=== PATIENT | female | born 1955 | race Caucasian/White ===

== ENCOUNTER 2018-10-23 21:39 | Inpatient (IN) | payer OTHER ==
[~2018-10-23] VITALS: Ht 162.6 cm; Wt 89.0 kg
[2018-10-23 21:49] VITALS: Ht 162.6 cm; Wt 89.0 kg
--- NOTE | 2018-10-23 23:00 | NUR ---
PT. IN ED WITH C/O ABD CRAMPING AND N/V SINCE MONDAY. REPORTS SHE WENT TO URGENT CARE EARLIER TODAY AND WAS TOLD TO COME TO ED. DENIES DYSURA, OR FREQUENCY. ALSO DENIES ANY RECENT TRAVEL. PT. AAOX4, TALKING AND RESPONDING APPROPRIATELY, BREATHING E/U. NAD. AMBULATED TO RESTROOM TO OBTAIN URINE SAMPLE
--- NOTE | 2018-10-23 23:14 | NUR ---
PT. TAKEN TO CT VIA WHEELCHAIR
[2018-10-23 23:25] LABS: BASOPHIL % 0.2 % (0-2); PLATELET COUNT 255 x10^3mcL (130-400)
[2018-10-23 23:28] LABS: RED CELL DISTRIBUTION WIDTH 15.1 % (11.5-14.5)
[2018-10-23 23:34] LABS: CALCIUM 10.8 mg/dL (8.5-10.1); CARBON DIOXIDE 17.2 mmol/L (21-32); CHLORIDE SERUM 95 mmol/L (98-107); CREATININE SERUM 0.8 mg/dL (0.6-1.0); GFR1 > 60 mL/min; GLUCOSE SERUM 324 mg/dL (74-106); POTASSIUM SERUM 3.5 mmol/L (3.5-5.1); SODIUM SERUM 133 mmol/L (136-145)
[2018-10-23 23:38] LABS: UA SPECIFIC GRAVITY >=1.030 (1.005-1.035); microscopic required? YES; urine erythrocyte TRACE (NEGATIVE)
[2018-10-23 23:39] LABS: ALKALINE PHOSPHATASE 185 U/L (46-116); ALT/SGPT 156 U/L (14-59); AST/SGOT 18 U/L (15-37); BILIRUBIN TOTAL 0.8 mg/dL (0.20-1.00); LIPASE 316 IU/L (73-393)
[2018-10-23 23:41] LABS: ALBUMIN 2.8 g/dL (3.4-5.0)
--- NOTE | 2018-10-23 23:46 | NUR ---
PT. MEDICATED PER E-MAR. OXYGEN SAT DECREASED AFTER MORPHINE GIVEN. PLACED ON 2L OXYGEN VIA NC.
--- NOTE | 2018-10-24 00:06 | NUR ---
LAB AT BEDSIDE TO DRAW BLOOD CULTURES
--- NOTE | 2018-10-24 00:51 | NUR ---
US AT BEDSIDE.
--- NOTE | 2018-10-24 02:15 | NUR ---
PER DR. WILLIAMSON, START D5 1/2 NS AT 15ML/HR FOR 30MIN THEN START INSULIN DRIP AT 8UNITS/HR.
[2018-10-24 02:34] LABS: MAGNESIUM 1.9 mg/dL (1.8-2.4); PHOSPHOROUS 3.1 mg/dL (2.5-4.9)
[2018-10-24 02:35] LABS: CHOLESTEROL/HDL RATIO 8.6; T3 TOTAL 0.75 ng/mL
[2018-10-24 02:44] LABS: FREE T4 1.19 ng/dL (0.76-1.46); FREE THYROXINE INDEX 2.9 ug/dL (1.4-4.5); T4(THYROXINE) 9.1 ug/dL (4.7-13.3)
--- NOTE | 2018-10-24 03:21 | NUR ---
PT. LAYING ON GURNEY IN POSITION OF COMFORT. BREATHING E/U. REPORTS LOWER BACK PAIN 06/13 AND REQUEST PAIN MEDICATION. CALL LIGHT IN REACH. WILL CONTINUE TO MONITOR.
--- NOTE | 2018-10-24 04:09 | NUR ---
BLOOD SUGAR AT 326 AT THIS TIME. PER SLIDING SCALE INSULIN DRIP TITRATED TO 4UNITS/HR
--- NOTE | 2018-10-24 05:21 | NUR ---
BLOOD SUGAR 253. PER INSULIN DRIP SLIDING SCALE INFUSION CHANGED TO 3UNITS/HR
[2018-10-24 05:25] LABS: UA SPECIFIC GRAVITY >=1.030 (1.005-1.035); microscopic required? YES; urine erythrocyte NEGATIVE (NEGATIVE)
[2018-10-24 05:34] LABS: AMPHETAMINE QUAL UR NONE DETECTED (See below)
--- NOTE | 2018-10-24 06:00 | NUR ---
PT. REPORTS SHE DOES NOT TAKE ANY MEDICATIONS AT HOME
--- NOTE | 2018-10-24 06:10 | NUR ---
BLOOD SUGAR 256, INSULIN DRIP KEPT AT 3UNITS PER E-MAR SLIDING SCALE. PT. LAYING ON GURNEY IN POSITON OF COMFORT. BREATHING E/U. NAD. CALL LIGHT IN REACH. WILL CONTINUE TO MONITOR
--- NOTE | 2018-10-24 06:27 | NUR ---
DR. SLADEED AT BEDSIDE TO DISCUSS PLAN OF CARE WITH PATIENT.
--- NOTE | 2018-10-24 07:00 | NUR ---
BLOOD SUGAR 229. PER SLIDING SCALE INSLIN DRIP CHANGED TO 2U/HR.
--- NOTE | 2018-10-24 07:19 | NUR ---
ATTEMPTED TO GIVE REPORT, NURSE STATES SHE JUST GOT A NEW ADMISSION. AND REQUEST TO CALL BACK IN A FEW MINUTES
--- NOTE | 2018-10-24 07:24 | NUR ---
REPORT GIVEN TO EDER ARGUETA FOR FURTHER CARE OF PATIENT. ALL QUESTIONS AND CONCERS ADDRESSED.
--- NOTE | 2018-10-24 07:29 | NUR ---
REPORT RECEIVED FROM BILLY ARGUETA. PT LYING IN BED NO DISTRESS ON CM VSS IVF INFUSING WITH NO PROBLEM. WILL MONITOR
--- NOTE | 2018-10-24 08:00 | NUR ---
ATTEMPTED TO GIVE REPORT TO HELP DESK TECHNICIAN SHE IS NOT AVAILABLE TO TAKE REPORT AT THIS TIME
--- NOTE | 2018-10-24 08:02 | NUR ---
PATIENT'S BP 75/20, MAP 38. WISAM INITIATED AT 10 MCG.
--- NOTE | 2018-10-24 08:09 | NUR ---
LAB AT BEDSIDE FOR BLOOD DRAW. BLOOD GLUCOSE RECHECK 242 AT THIS TIME. INSULIN DRIP RATE AT 2 UNITS/HR INFUSING WITH NO PROBLEM. VSS AT THIS TIME. PT IN NO DISTRESS. CALL LIGHT IN REACH. WILL MONITOR
--- NOTE | 2018-10-24 08:23 | NUR ---
I ASSISTED PT TO BATHROOM AMBULATORY WITH NO PROBLEM. PT VOIDED WITH NO INCIDENT. PT BACK TO BED WITH NO INCIDENT. IVF INFUSIONS RESUMED IV SITE PATENT. PT IN POSITION OF COMFORT SIDE RAILS UP X 2 FOR SAFETY CALL LIGHT IN REACH WILL CONTINUE TO MONITOR
[2018-10-24 08:38] LABS: CALCIUM 8.2 mg/dL (8.5-10.1); CARBON DIOXIDE 20.6 mmol/L (21-32); CREATININE SERUM 0.7 mg/dL (0.6-1.0); GFR1 > 60 mL/min; GLUCOSE SERUM 260 mg/dL (74-106); MAGNESIUM 1.5 mg/dL (1.8-2.4); PHOSPHOROUS 1.9 mg/dL (2.5-4.9)
[2018-10-24 08:44] LABS: CHLORIDE SERUM 104 mmol/L (98-107); POTASSIUM SERUM 3.2 mmol/L (3.5-5.1); SODIUM SERUM 136 mmol/L (136-145)
--- NOTE | 2018-10-24 08:45 | NUR ---
CHIEF SCIENCE OFFICER UNAVAILABLE AT THIS TIME FOR REPORT. PT IN NO DISTRESS ON FULL CM VSS WILL CONTINUE TO MONITOR
--- NOTE | 2018-10-24 09:27 | NUR ---
PT VSS AT [facility]. NO DISTRESS IVF INFUSIONS IN PROGRESS ORDERED BY IV SITE PATENT. PT REPOSITIONED EXTRA PILLOW PROVIDED WELL WARM BLANKETS PER PTS REQUEST LIGHTS OFF FOR COMFORT. PHARMACY CALLED FOR AM MEDS PENDING, AWAITING DELIVERY. WILL CONTINUE TO MONITOR
--- NOTE | 2018-10-24 09:30 | NUR ---
ATTEMPTED TO GIVE REPORT TO [facility] SHE IS UNAVAILABLE AT THIS TIME. APPLICATION PROJECT LEADER KIERAN MADE AWARE.
--- NOTE | 2018-10-24 10:30 | NUR ---
PT C/O 12/13 ABD PAIN RESIDENT PAGED AWAITING ORDERS. WILL CONTINUE TO MONITOR
--- NOTE | 2018-10-24 10:45 | NUR ---
PT MEDICATED FOR PAIN ORDERED BY RESIDENT SEE EMAR. PT IN POSITION OF COMFORT PTS AT BEDSIDE WILL MONITOR
--- NOTE | 2018-10-24 11:22 | NUR ---
REPORT GIVEN TO DAYANA ARGUETA IN ICU
--- NOTE | 2018-10-24 11:50 | NUR ---
PT TRANSPORTED TO ICU FLOOR ON PORTABLE CM IVF INFUSIONS RESUMED BY LABORATORY EQUIPMENT INSTALLER. JOHNSON RN AND NATE EMT ACCOMPANIED PT VSS IV SITES PATENT. ALSO ACCOMPANYING PT TO ICU DEPT. CARE OF PT RESUMED BY LABORATORY EQUIPMENT INSTALLER.
--- NOTE | 2018-10-24 12:00 | NUR ---
RC'D PT FROM ED VIA [facility] WITH NURSE PRESENT AT BEDSIDE. PT A/A/O/X4, SPEECH CLEAR AND APPROPRIATE. PT DENIES ESPARZA/DIZZINESS. PT RESPONDS TO VERBAL COMMANDS AND ABLE TO MAKE NEEDS KNOWN. PUPILS 3MM AND BRISK BILAT. EENT FREE OF DRAINAGE. RESPIRATIONS EQUAL AND UNLABROED. LUNGS CTA. ON 2L O2 VIA NC, PT DENIES SOB. SPO2 97%, NO RESP DISTRESS. NOTED. NSR ON GATE OPERATOR, HR=94. PT DENIES CP./ PALP PULSES, NO EDEMA NOTED. CAP REFILL <3. SKIN WARM TO TOUCH. PT ABLE TO REPOSITION SELF IN BED. PT USES BSC. PT CURRENTLY NPO AT THIS TIME. ABDOMEN ROUND AND TENDER INTERMITTENTLY. ACTIVE BS. PT DENIES N/V AT THIS TIME. NO BM NOTED. PT VOIDS FREELY, DENIES BURNING. SKIN W/D/I. PT CALM AND COOPERATIVE AT THIS TIME. BED IN LOWEST POSITION. [facility]
--- NOTE | 2018-10-24 12:39 | NUR ---
MEDICAL CASE MANAGER PRESENT AT BEDSIDE.
--- NOTE | 2018-10-24 12:54 | NUR ---
PATIENT C/O PAIN IN BACK 7/10 ACHING. ADMINISTER MORPHINE 2 MG IVP FOR PAIN.
[2018-10-24 13:31] LABS: CALCIUM 8.3 mg/dL (8.5-10.1); CARBON DIOXIDE 19.7 mmol/L (21-32); CHLORIDE SERUM 104 mmol/L (98-107); CREATININE SERUM 0.7 mg/dL (0.6-1.0); GFR1 > 60 mL/min; GLUCOSE SERUM 264 mg/dL (74-106); MAGNESIUM 1.5 mg/dL (1.8-2.4); POTASSIUM SERUM 3.4 mmol/L (3.5-5.1); SODIUM SERUM 137 mmol/L (136-145)
[2018-10-24 14:08] VITALS: BP 157/75
[2018-10-24 15:36] VITALS: BP 130/61
--- NOTE | 2018-10-24 15:46 | NUR ---
PT RESTING IN BED WITH PRESENT AT BEDSIDE. RESPIRATIONS EQUAL AND UNLABORED. ON 2L O2 VIA NC, DENIES SOB. NSR ON HYDRAULIC STRAINER OPERATOR. PT DENIES CP. GENERALIZED WEAKNESS, PT ABLE TO REPOSITION SELF. NS INFUSING AT 250 PER EMAR. INSULIN DRIP INFUSING @9UN/KG/HR PER MD ORDER. PT NPO AT THIS TIME. BED IN LOWEST POSITION WILL CONT TO MONITOR
--- NOTE | 2018-10-24 16:34 | NUR ---
BS 182 INSULIN ADJUSTED TO 4.5UN/HR PER PROTOCOL AND D51/2 INITIATED AT THIS TIME.
[2018-10-24 16:49] LABS: CARBON DIOXIDE 16.8 mmol/L (21-32); CHLORIDE SERUM 105 mmol/L (98-107); CREATININE SERUM 0.6 mg/dL (0.6-1.0); GFR1 > 60 mL/min; GLUCOSE SERUM 170 mg/dL (74-106); MAGNESIUM 2.3 mg/dL (1.8-2.4); PHOSPHOROUS 1.7 mg/dL (2.5-4.9); POTASSIUM SERUM 3.1 mmol/L (3.5-5.1); SODIUM SERUM 135 mmol/L (136-145)
--- NOTE | 2018-10-24 16:57 | NUR ---
RECRUITMENT AND OUTREACH ASSISTANT UNABLE TO GET ADEQUATE AMOUNT OF BLOOD FOR VBG. PATIENT REFUSING TO ALLOW DRAW ON HAND.
--- NOTE | 2018-10-24 17:21 | NUR ---
PT C/O OF ABD PAIN 08/13, REQUESTING MORPHINE IVP. MEDICATED PER EMAR. VITALS STABLE. WILL CONT TO MONITOR
--- NOTE | 2018-10-24 19:15 | NUR ---
RECIEVED REPORT FROM ELLIE CERON. POC DISCUSSED. NURSING UPDATES. SEE SHIFT ASSESSMENT FOR ASSESSMENT.
--- NOTE | 2018-10-24 19:40 | NUR ---
REPORT GIVEN TO BETTY ARGUETA. ALL QUESITON AND CONCERNS ADDRESSED
--- NOTE | 2018-10-24 20:44 | NUR ---
PT C/O PAIN 09/12. ADM PRN (*SEE MAR*) MORPHINE. PT STATED RELIEF. WILL REASSESS.
--- NOTE | 2018-10-24 20:47 | NUR ---
TITRATED NS FROM 2L TO OFF. PT TOLERATED WELL. NO S/S OF RESP DISTRESS. PT DENIES RESP DISTRESS. 02 SAT 94%. WILL CONT TO MONITOR.
--- NOTE | 2018-10-24 21:06 | NUR ---
FAST FOOD FRY COOK @ BEDSIDE.
[2018-10-24 21:38] LABS: MAGNESIUM 2.1 mg/dL (1.8-2.4)
[2018-10-24 23:23] VITALS: BP 162/76
[2018-10-24 23:28] LABS: CALCIUM 8.1 mg/dL (8.5-10.1); CARBON DIOXIDE 13.5 mmol/L (21-32); CHLORIDE SERUM 103 mmol/L (98-107); CREATININE SERUM 0.6 mg/dL (0.6-1.0); GFR1 > 60 mL/min; GLUCOSE SERUM 251 mg/dL (74-106); POTASSIUM SERUM 3.8 mmol/L (3.5-5.1); SODIUM SERUM 134 mmol/L (136-145)
--- NOTE | 2018-10-25 | NUR ---
PT PLACED ON NPO FOR SCHEDULED SURGERY. PT TOLERATED WELL AND ACKNOWLEDGES NPO STATUS.
--- NOTE | 2018-10-25 01:00 | NUR ---
PRESALES ENGINEER @ BEDSIDE.
[2018-10-25 01:31] LABS: CARBON DIOXIDE 22.4 mmol/L (21-32); CHLORIDE SERUM 107 mmol/L (98-107); CREATININE SERUM 0.6 mg/dL (0.6-1.0); GFR1 > 60 mL/min; GLUCOSE SERUM 151 mg/dL (74-106); SODIUM SERUM 139 mmol/L (136-145)
[2018-10-25 02:14] LABS: PHOSPHOROUS 1.8 mg/dL (2.5-4.9)
--- NOTE | 2018-10-25 03:00 | NUR ---
PT W/ UNFORMED BROWN LOOSE BM. PT TOLERATED WELL AND STATED RELIEF. NO ACUTE CHANGES TO VS. WILL ENDORSE.
--- NOTE | 2018-10-25 03:22 | NUR ---
PT RESTING CALMLY IN BED COMPLIANT W/ NO COMPLAINTS. VS STABLE NO S/S OF DISTRESS WILL ENDORSE AND CONT TO MONITOR.
[2018-10-25 03:53] VITALS: BP 147/75
--- NOTE | 2018-10-25 03:58 | NUR ---
REPORT GIVEN TO ELLIE ROY. NURSING UPDATES. POC DISCUSSED.
[2018-10-25 05:12] LABS: CALCIUM 8.2 mg/dL (8.5-10.1); CARBON DIOXIDE 20.9 mmol/L (21-32); CHLORIDE SERUM 105 mmol/L (98-107); CREATININE SERUM 0.7 mg/dL (0.6-1.0); GFR1 > 60 mL/min; GLUCOSE SERUM 159 mg/dL (74-106); SODIUM SERUM 138 mmol/L (136-145)
[2018-10-25 05:14] LABS: BASOPHIL % 0.3 % (0-2); PLATELET COUNT 264 x10^3mcL (130-400)
[2018-10-25 05:16] LABS: POTASSIUM SERUM 2.7 mmol/L (3.5-5.1)
[2018-10-25 05:20] LABS: RED CELL DISTRIBUTION WIDTH 14.7 % (11.5-14.5)
[2018-10-25 05:22] LABS: MAGNESIUM 1.8 mg/dL (1.8-2.4); PHOSPHOROUS 1.4 mg/dL (2.5-4.9)
--- NOTE | 2018-10-25 05:32 | NUR ---
[facility] HAS CLOSED FOR PATIENT. MADE DR. ARNOLD AWARE TO CHANGE ORDERS. ALSO MADE DR. ARNOLD AWARE OF LOW POTASSIUM LEVEL. AWAITING ORDERS. ALL QUESTIONS AND CONCERNS ANSWERED.
--- NOTE | 2018-10-25 06:05 | NUR ---
DR. GARCIA AT BEDSIDE ASSESSING PT. UPDATES PROVIDED.
--- NOTE | 2018-10-25 07:10 | NUR ---
GAVE REPORT TO SOPHIA ARGUETA. ALL QUESTIONS AND CONCERNS ADDRESSED.
--- NOTE | 2018-10-25 07:21 | NUR ---
RECEIVED PT'S REPORT FROM LEAVING NURSE. PT IS READY FOR SCHEDULED LAP KEITH SURGERY. PT'S AT BED SIDE.
--- NOTE | 2018-10-25 07:32 | NUR ---
JIN FROM OR AT BEDSIDE WITH OR TECH TO TRANSPORT PATIENT TO OR. REPORT GIVEN TO JIN PURSE FRAMER WITH ALL QUESTIONS AND CONCERNS ADDRESSED.
--- NOTE | 2018-10-25 07:42 | NUR ---
PATIENT REMOVED FROM ICU MISSILEMAN AND PLACED ON PORTABLE MISSILEMAN BY OR TEAM. PATIENT TRANSFERRED TO OR AT THIS TIME.
--- NOTE | 2018-10-25 08:53 | NUR ---
CALLED REPORT TO TEQUILA ARGUETA. PATIENT TO TRANSFER TO ROOM 204A S/P OP.
--- NOTE | 2018-10-25 08:54 | NUR ---
SPOKE WITH TROY IN OR AND PROVIDED INFORMATION THAT PATIENT TO BE TRANSFERRED TO ROOM 204A S/P OP.
--- NOTE | 2018-10-25 09:20 | NUR ---
PATIENT'S ROOM CLEANED AND NO PATIENT BELONGINGS FOUND. BELONGINGS LIST PRINTED AND TAKEN TO OR WAITING ROOM FOR PATIENT'S TO SIGN.
--- NOTE | 2018-10-25 12:58 | NUR ---
PATIENT RECEIVED POST OPERATIVE WITH DRESSING TO ABDOMEN INTACT. COMPLAINS OF PAIN AND GAVE MORPHINE IVP AND ZOFRAN FOR ABDOMINAL PAIN. PATIENTS SPOUSE AT BEDSIDE AND SUPPORTIVE. LUNGS ARE DIMINISHED AND BOWEL SOUNDS HYPO. SHE HAS SOME EDEMA TO THE LOWER EXREMTIES AND IS TO CONTINUE WITH ZOSYN ORDERED. PATIENT HAS BEEN IN ICU PRIOR AND WITH DKA AND IS IN DENIAL TO SOME DEGREE FROM REPORTS ON HER DIABETES. SHE HAD AN AIC OF 13.0. SHE HAS NOT BEEN TREATING THE DIABETES PRIOR. SHE IS RESTING AT THIS TIME. AND THE MOANING AND COMPLAINTS OF PAIN AND GONE TO SORRY FOR BEING SO "RUDE." IV FLUIDS CONTINUE AND VITALS AT THIS TIME AT 90, 95%, 14, 145/77, 97.9.
--- NOTE | 2018-10-25 14:22 | NUR ---
PATIENT WAS UP AND URINATED. BACK TO BED AND SLEEPING AT THIS TIME
--- NOTE | 2018-10-25 15:54 | NUR ---
GAVE LASIX ORDERED AND PATIENT IS IN DENIAL OF DIABETES, FLUID RETENTION OR HIGH CHOLESTEROL. EX[PLAINED THAT HER LAB WORK STATES SHE HAS ISSUES WITH AL OF THE ABOVE AND WE ARE TREATING HER SUCH. PATIENT STATES SHE IS NOT DIABETIC NOR A STROKE OR HEARTATTACH RISK. HELD THE OTHER MEDICATIONS DUE TO NPO STATUS. SPOUSE AT BEDSIDE AND SUPPORTIVE WITH CARE. OOB AT THIS TIME WTIH PHYSICAL THERAPY AND WALKED TO THE STATION AND BACK TO HER ROOM. SHE HAS SOME UNSTEADINESS BUT OVERALL TOLERATED WELL. STILL IN DENIAL OF HER DIABETES.
[2018-10-25 17:21] VITALS: BP 109/60
--- NOTE | 2018-10-25 17:57 | NUR ---
BLOOD SUGAR AT 202 AND GAVE 3 UNITS OF REGULAR ORDERED.
--- NOTE | 2018-10-25 19:01 | NUR ---
GAVE TWO MG OF MRORPHINE ORDERED AND EFFECTIVE AT THIS TIME. AT BEDSIDE AND SUPPORTIVE WITH CARE.
--- NOTE | 2018-10-25 20:00 | NUR ---
Awake and verbally responsive. No respiratory distress noted on room air. Denies pain at this time. Denies n/v. Full liquid diet tolerated well. Abd'l.incisions with dressing intact. Will cont.to monitor. SCD in place. Verbalizing wanted to go home. Encouraged to ambulate and use of I.S. while awake.
[2018-10-25 21:24] VITALS: BP 132/52
--- NOTE | 2018-10-26 04:19 | NUR ---
Afebrile. No significant change in condition noted. Pain controlled. (-)flatus/bm. Cont.on IV Zosyn. Abd'l.dressing intact. In no apparent distress.
[2018-10-26 06:29] VITALS: BP 138/73
[2018-10-26 06:48] LABS: BASOPHIL % 0.3 % (0-2); PLATELET COUNT 285 x10^3mcL (130-400)
[2018-10-26 07:08] LABS: RED CELL DISTRIBUTION WIDTH 15.4 % (11.5-14.5)
--- NOTE | 2018-10-26 07:15 | NUR ---
RECEIVED PT FROM ELECTRIC MELT OPERATOR. PT AWAKE, ALERT. A/OX4. PT ON ROOM AIR WITH NO RESP DISTRESS NOTED. LUNGS CTA. IV ACCESS RH CDI INFUSING NS AT 70ML/HR. PT COMPLAINING OF MUSCLE ACHES AT THIS TIME. WILL MEDICATE PRN. ACTIVE BS NOTED. PT REPORTS PASSING GAS. PT NOTED TO HAVE GENERALIZED WEAKNESS. PERIPHERAL PULSES PALPABLE, NO EDEMA NOTED. PT NOTED TO HAVE 4 LAP SITES S/P LAP KEITH. PT ABLE TO AMBULATE WITH ASSISTANCE, SAFETY MEASURES IN PLACE, BED LOW AND LOCKED. CALL LIGHT WITHIN REACH.
[2018-10-26 07:20] LABS: CALCIUM 8.4 mg/dL (8.5-10.1); CARBON DIOXIDE 25.7 mmol/L (21-32); CHLORIDE SERUM 104 mmol/L (98-107); CREATININE SERUM 0.6 mg/dL (0.6-1.0); GFR1 > 60 mL/min; GLUCOSE SERUM 181 mg/dL (74-106); POTASSIUM SERUM 3.1 mmol/L (3.5-5.1); SODIUM SERUM 140 mmol/L (136-145)
--- NOTE | 2018-10-26 07:41 | NUR ---
TYLENOL ADMINISTERED FOR PAIN/MUSCLE ACHES ORDERED PRN. WILL MONITOR.
--- NOTE | 2018-10-26 09:07 | NUR ---
PT COMPLAINING OF PAIN, 5/10 AT THIS TIME AFTER ADMINISTRATION OF TYLENOL FOR MUSCLE ACHES. PT REQUESTING MORPHINE. MED ADMINISTERED ORDERED PRN. WILL MONITOR.
[2018-10-26 10:11] VITALS: BP 114/61
--- NOTE | 2018-10-26 10:30 | NUR ---
PT REPORTS RELIEF AFTER MORPHINE ADMINISTRATION.
--- NOTE | 2018-10-26 11:49 | NUR ---
PT RESTING COMFORTABLY AT THIS TIME. PT BLOOD SUGAR 261, 9 UNITS REG INSULIN COVERAGE GIVEN. PT TO BE ON CONTROLLED CARB DIABETIC DIET FOR LUNCH. FAMILY AT BEDSIDE. SAFETY MAINTAINED.
--- NOTE | 2018-10-26 11:53 | NUR ---
Recommendation(s): 1. When appropriate per MD/REJECTED ITEMS CLERK, advance diet to [facility] Low Fat diet as pt tolerates. 2. Spoke w/ REJECTED ITEMS CLERK Alana regarding receommendation for diet advancement, confirmed.
--- NOTE | 2018-10-26 11:53 | NUR ---
Initial Nutrition Assessment: (203-B) SOFIA MICHEL 63F Dx: DKA PMHx: Borderline DM (5-6yrs ago), Bronchitis PSHx: Dental (20yrs ago) Labs: K 3.1 L, BG 181 L, Alb 2.8 L, Ca 8.4 L, Phos 1.4 L, ALT 156 H, Alk Ph 185 H, Trig 209 H, Chol 248 H, LDL 182 H, HDL 29 L, A1c 13.8 H, Ketones 3+ Meds: Colace, Humulin, Klor-Con, Lactulose, Lantus, Lipitor, Senokot, Zofran Diet: Full Liquid PO intake since admission: 65% Ht: 64in Wt: 196# BMI: 33.7 Bed scale: 96.3kg/212# IBW: 120# %IBW: 163% UBW: 185-190# Age: 63 Food Allergies: NKFA Skin: Arslan: 21 Edema: none noted GI: Last BM: 10/25 Note (10/26): Nursing trigger received for N/V/D >3days, poor PO >3days. Visited pt for primary Dx DKA. Noted pt presented findings consistent w/ acute pancreatitis, and 3.1 cm gallstone in gallbladder neck, per Dr Kohli progress note. Pt currently on full liquid diet s/p cholecystectomy 10/25 in AM. Pt may benefit from moderate wt loss r/t new onset DM2, obesity. Visited pt and pt's bedside, states had some issues w/ N/V and a little consitpation yesterday. Pt also states appetite has been poor lately, but has been slowly improving during her admission here. Pt denies any pain at this time, but states this AM abd pain 5-08/13. Provided DM2 nutrition therpay handout and explained guidelines of following a DM diet, appropriate examples of foods, portion sizes, and CHO counting. Spoke w/ HOT DIP GALVANIZER Alana regarding receommendation for diet advancement, confirmed. Problem with: N/V/C Problems with: Chewing: No Swallowing: No Current appetite: Low, but improving Recent wt change: Fluctuates %wt change: fluctuates Vitamin/Supplement use: MVM, VitC, B-complex Special diet at home: Regular Physical activity: N/A Nutrition education given (specify specific nutrition education and handout given): Type 2 Diabetes Nutrition Therapy - provided hand explained handout, appropriate examples of foods, portion sizes, and CHO counting. Food-drug interactions? Education given? Type 2 Diabetes Nutrition Therapy. Estimated Nutritional Needs Based on adjusted body weight (63.2 kg) Energy: 9552-4440 kcal/day (25-30 kcal/kg for moderate wt loss) Protein: 76-95 g/day (1.2-1.5 g/kg to preserve LBM) Fluid: 2813-6827 mL/day (1 mL/kcal) Nutrition Diagnosis: Altered nutrient-related lab values r/t new onset DM2, DKA, Obesity, Acute Pancreatitis AEB BG 181, A1c 13.8, Ketones 3+, Trig 209, Chol 248, LDL 182, HDL 29 Intervention 1. When appropriate per MD/HOT DIP GALVANIZER, advance diet to [facility] Low Fat diet as pt tolerates. 2. Spoke w/ HOT DIP GALVANIZER Alana regarding receommendation for diet advancement, confirmed. Monitor/Evaluate Goal: PO intake at least 75% of estimated needs, adequate wound healing Monitor: PO intake, wound healing, Labs, GI function F/U in 3-5 days as moderate risk 10/29-10/31
--- NOTE | 2018-10-26 14:36 | NUR ---
PT COMPLAINING OF MILD PAIN ASKING FOR TYLENOL. MEDICATION ADMINISTERED ORDERED PRN (SEE EMAR). PER [place]OUNT TAXIMETER REPAIRER, OK TO CHANGE DRESSING. SOME DRIED BLOOD NOTED TO OLD BANDANGE. BONY INTACT, NO BLEEDING/SWELLING NOTED. COLD PACKS APPLIED FOR COMFORT.
--- NOTE | 2018-10-26 15:55 | NUR ---
PT REPORTS TYLENOL HELPED WITH PAIN. STATES IT "TOOK THE EDGE OFF". PT HAD LOOSE BOWEL MOVEMENT. NO ACUTE DISTRESS NOTED AT THIS TIME. FAMILY AT BEDSIDE. SAFETY MAINTAINED.
[2018-10-26 16:46] VITALS: BP 135/62
--- NOTE | 2018-10-26 18:22 | NUR ---
PT STABLE AT THIS TIME. ALL NEEDS TENDED TO THOROUGHOUT SHIFT. WILL CONTINUE TO MONITOR AND ENDORSE CARE TO CENTER MACHINE SET UP OPERATOR.
--- NOTE | 2018-10-26 20:13 | NUR ---
PT RECIEVED AAO WITH FAMILY AT THE BEDSIDE,REG RESP NO SOB V/S STABLE,KEPT CLEAN AND DRY TO TOUCH,MADE COMFORTABLE IN BED,IV INFUSING WELL WITH THE SITE PATENT AND INTACT,DRESSING TO THE ABDO IS CDI.ABDO IS SOFT WITH ACTIVE BOWEL SOUNDS,CALL LIGHT EASY REACHED AND WILL CONTINUE TO MONITOR.
[2018-10-26 21:54] VITALS: BP 117/72
--- NOTE | 2018-10-27 00:14 | NUR ---
PT RESTING AT THIS TIME,WILL CONTINUE TO MONITOR.
[2018-10-27 06:03] VITALS: BP 170/77
--- NOTE | 2018-10-27 06:14 | NUR ---
PT HAD A RESTING NIGHT NO CHANGE AT THIS TIME,WILL CONTINUE TO MONITOR.
[2018-10-27 06:29] LABS: BASOPHIL % 0.6 % (0-2); PLATELET COUNT 316 x10^3mcL (130-400)
[2018-10-27 06:38] VITALS: BP 156/73
[2018-10-27 06:47] LABS: CALCIUM 8.1 mg/dL (8.5-10.1); CARBON DIOXIDE 25.7 mmol/L (21-32); CHLORIDE SERUM 103 mmol/L (98-107); CREATININE SERUM 0.5 mg/dL (0.6-1.0); GFR1 > 60 mL/min; GLUCOSE SERUM 171 mg/dL (74-106); POTASSIUM SERUM 3.3 mmol/L (3.5-5.1); SODIUM SERUM 141 mmol/L (136-145)
[2018-10-27 07:03] LABS: RED CELL DISTRIBUTION WIDTH 15.4 % (11.5-14.5)
--- NOTE | 2018-10-27 08:00 | NUR ---
ALERT AND ORIENTED. HAS BEEN UP AMBULATING IN HALLWAY. CCHO DIET GOOD APPETITE. DENIES ABD OP PAIN. SAYS HER BACK IS ACHING.DOES NOT WANT ANY PAIN MEDS.INDEPENDENT W ADL'S. AFEBRILE. SL TO RT HAND. ABD SOFT. LAST BM THIS AM WATERY. INC X 4 WITH BAND AIDS CDI. WEARING SCD'S. CALL LIGHT WITHIN REACH. AFEBRILE.
[2018-10-27 08:54] VITALS: BP 151/82
[2018-10-27] MEDS ORDERED: LIPI10 PO (09:40)
[2018-10-27] MEDS ORDERED: IBUPROFEN400 MG PO (09:40)
[2018-10-27] MEDS ORDERED: ACCU-CHEK COMB1 EACH MC (09:48)
[2018-10-27] MEDS ORDERED: GLUCOPHAGE500 MG PO (09:48)
[2018-10-27] MEDS ORDERED: [UNRECOGNIZED DRUG - OTHER] MC (09:52)
[2018-10-27 09:54] VITALS: BP 151/82
--- NOTE | 2018-10-27 10:07 | NUR ---
AMBULATED IN HALLWAY WITH .
--- NOTE | 2018-10-27 11:53 | NUR ---
DC'D TO HOME. SL TO RT HAND DC'D INTACT.NO TELE. PT TO CALL PCP FOR F/U BRIE IN 2-3 DAYS. TO OBTAIN REFERRAL FOR DECISION SCIENCE ANALYST FOR DM. CALL DR. MATTSON OFFICE FOR F/U BRIE ON MONDAY. ALL DC INSTRUCTIONS REVIEWED WITH AND SIGNED BY PT. PRESCRIPTION GIVEN FOR LIPITOR AND IBUPROPHEN. ALSO ACCUCK SUPPLIES. PT WILL KEEP LOG OF BLOOD SUGARS FOR HER
== END 2018-10-27 12:22 | disposition home or self-care (01) | DRG 417 ==
LOC: ED 21:39 → IC 10-24 01:01 → DU 10-25 11:46 → MU 10-25 11:47
PROVIDERS: Emergency Medicine; Surgery; ADMIT General Practice
PROC: 0FT44ZZ Resection of Gallbladder, Percutaneous Endoscopic Approach (ICD-10-PCS; principal; 2018-10-25 08:00)
DX: K80.12 Calculus of gallbladder with acute and chronic cholecystitis without obstruction (principal); E11.10 Type 2 diabetes mellitus with ketoacidosis without coma; K85.90 Acute pancreatitis without necrosis or infection, unspecified; E44.0 Moderate protein-calorie malnutrition; E87.1 Hypo-osmolality and hyponatremia; E83.52 Hypercalcemia; K59.00 Constipation, unspecified; E78.5 Hyperlipidemia, unspecified; E66.9 Obesity, unspecified; Z68.31 Body mass index [BMI] 31.0-31.9, adult; Z79.84 Long term (current) use of oral hypoglycemic drugs
CPT/HCPCS: 82962; 83880; 84439; 94150; 97116-GP; 97530-GP; G0378; J1170; J1815; J1940; J1956; J2270; J2405; J2543; J2704; J3010; J3475; J3490; J7030; J7120; Q0092